=== PATIENT | male | born 1975 | race Caucasian/White ===

== ENCOUNTER 2017-09-08 09:23 | Emergency (ER) | payer MEDICAID, SELFPAY ==
[2017-09-08 09:25] VITALS: BMI 28.3
--- NOTE | 2017-09-08 10:31 | ED PDOC ---
HPI: Abdomen Time Seen by Provider: 09/08/17 10:05 Chief Complaint (Nursing): Back Pain Chief Complaint (Provider): Abdominal Pain History Per: Patient, Game Designer/Creative Director History/Exam Limitations: no limitations Current Symptoms Are (Timing): Better Severity: Mild Location Of Pain/Discomfort: Diffuse, LUQ Quality Of Discomfort: Unable To Describe Associated Symptoms: Nausea, Vomiting Past Medical History Vital Signs: Last Vital Signs Temp 97.6 F 09/08/17 09:27 Pulse 85 09/08/17 09:27 Resp 20 09/08/17 09:27 BP 134/86 09/08/17 09:27 Pulse Ox 98 09/08/17 17:04 - Surgical History Surgical History: Appendectomy - Family History Family History: States: No Known Family Hx - Allergies Allergies/Adverse Reactions: Allergies Allergy/AdvReac Type Severity Reaction Status Date / Time Unobtainable Allergy Verified 09/08/17 10:37 Review of Systems Constitutional: Positive for: Fever Gastrointestinal: Positive for: Nausea, Vomiting Musculoskeletal: Positive for: Back Pain Physical Exam - Reviewed Nursing Documentation Reviewed: Yes Vital Signs Reviewed: Yes - Physical Exam Appears: Positive for: Well, Non-toxic, No Acute Distress Head Exam: Positive for: ATRAUMATIC, NORMOCEPHALIC Skin: Positive for: Normal Color Neck: Positive for: Normal, Painless ROM, Supple Cardiovascular/Chest: Positive for: Regular Rate, Rhythm, Chest Non Tender. Negative for: Edema, Gallop, Murmur Respiratory: Positive for: Normal Breath Sounds. Negative for: Accessory Muscle Use, Crackles, Rales, Rhonchi, Stridor, Wheezing, Respiratory Distress Gastrointestinal/Abdominal: Positive for: Bowel Sounds (normal), Soft. Negative for: Tenderness - Laboratory Results Result Diagrams: 09/08/17 11:30 09/08/17 11:30 - ECG O2 Sat by Pulse Oximetry: 98 Medical Decision Making Medical Decision Making: R/O Hepatitis over Fatty Liver CT: PROCEDURE: CT Abdomen and Pelvis with contrast HISTORY: hx hepatome COMPARISON: None. TECHNIQUE: Contrast dose: Omnipaque 300, 95 cc Radiation dose: Total exam DLP = mGy-cm. This CT exam was performed using one or more of the following dose reduction techniques: Automated exposure control, adjustment of the mA and/or kV according to patient size, and/or use of iterative reconstruction technique. FINDINGS: LOWER THORAX: Unremarkable. LIVER: There is prominent diffuse diminished density seen throughout the liver compatible hepatic steatosis. No intrahepatic biliary dilatation or definitive mass appreciable. Fluid does not appear significantly enlarged. GALLBLADDER AND BILE DUCTS: Unremarkable. PANCREAS: Unremarkable. No gross lesion or ductal dilatation. SPLEEN: Unremarkable. ADRENALS: Unremarkable. No mass. KIDNEYS AND URETERS: Unremarkable. No hydronephrosis. No solid mass. VASCULATURE: Unremarkable. No aortic aneurysm. BOWEL: Unremarkable. No obstruction. No gross mural thickening. APPENDIX: The appendix not identified. No CT evidence of appendicitis at this time. PERITONEUM: Unremarkable. No free fluid. No free air. LYMPH NODES: Mildly enlarged bilaterally well of lymph nodes identified measuring 2.6 x 1.0 cm maximum at the left and 2.9 x 1.0 cm at the right. BLADDER: Unremarkable. REPRODUCTIVE: Unremarkable. BONES: No acute fracture. OTHER FINDINGS: None. IMPRESSION: Prominent hepatic steatosis is seen diffusely without focal mass or enlarged liver appreciated. No intrahepatic biliary dilatation. If they hepatic mass is clinically suspected then follow-up triple phase CT the abdomen is advised or MRI with and without contrast. Mild bilateral inguinal lymphadenopathy. Consistent findings wiht acute hepatitis pt will phone in following morning for results of Acute Hep Panel Rest Fluids No etoh no tylenol Disposition - Clinical Impression Clinical Impression: Fatty liver disease, nonalcoholic - Patient ED Disposition Is Patient to be Admitted: No Doctor Will See Patient In The: Office Counseled Patient/Family Regarding: Studies Performed, Diagnosis, Need For Followup - Disposition Disposition: Routine/Home Disposition Time: 17:13 Condition: STABLE Additional Instructions: pt will phone in the am for lab results pt will follow up with his PMD at the [facility] Instructions: Nonalcoholic Fatty Liver Disease (DC), Hepatitis A Forms: [employer] (Swedish)
[2017-09-08] MEDS ORDERED: Sodium Chloride 0.9% 1,000 ML IV SCH (10:45)
[2017-09-08 12:03] LABS: BASO # 0.1 K/uL (0.0-0.2); BASO % 0.7 % (0.0-2.0); EOS # 0.1 K/uL (0.0-0.7); EOS % 1.5 % (0.0-4.0); HEMOGLOBIN 15.5 g/dL (12.0-18.0); LYMPH # 2.2 K/uL (1.0-4.3); LYMPH % 30.2 % (20.0-40.0); MEAN CELL VOLUME 87.4 fl (80.0-94.0); MEAN CORPUSCULAR HEMOGLOBIN 29.9 pg (27.0-31.0); MEAN CORPUSCULAR HGB CONC 34.2 g/dL (33.0-37.0); MEAN PLATELET VOLUME 9.2 fl (7.2-11.7); MONO % 13.3 % (0.0-10.0); NEUT # 3.9 K/uL (1.8-7.0); NEUT % 54.3 % (50.0-75.0); NRBC % 0.1 % (0.0-0.0); RBC 5.17 Mil/uL (4.40-5.90); RED CELL DISTRIBUTION WIDTH 13.4 % (11.5-14.5); WHITE BLOOD COUNT 7.2 K/uL (4.8-10.8)
[2017-09-08 12:09] LABS: SQUAMOUS EPITHIAL 1 /hpf (0-5); URINE BACTERIA RARE (<OCC); URINE BILIRUBIN NEGATIVE (NEGATIVE); URINE BLOOD MODERATE (NEGATIVE); URINE CLARITY SLIGHTY-CLOUDY (Clear); URINE COLOR AMBER (YELLOW); URINE GLUCOSE (UA) NEG (Normal); URINE HYALINE CAST 0-2 /hpf (0-2); URINE LEUKOCYTE ESTERASE NEG Leu/uL (Negative); URINE PROTEIN 30 mg/dL (NEGATIVE)
[2017-09-08 12:20] LABS: ALB/GLOB RATIO 1.2 (1.0-2.1); ALT/SGPT 153 U/L (21-72); AST/SGOT 48 U/L (17-59); BLOOD UREA NITROGEN 17 mg/dl (9-20); CALCIUM 8.9 mg/dL (8.4-10.2); GFR AFRICAN-AMERICAN > 60; GFR NON-AFRICAN AMERICAN > 60; LIPASE 145 U/L (23-300)
[2017-09-08] MEDS ORDERED: Iohexol 300 100 ML IJ ONE (15:28)
[2017-09-08] MEDS ORDERED: Sodium Chloride 0.9% 100 ML ONE (15:29)
[2017-09-08 15:58] LABS: HEPATITIS B SURFACE AG Negative (NEGATIVE)
[2017-09-08 16:04] LABS: HEPATITIS A IGM NEGATIVE (NEGATIVE); HEPATITIS B CORE AB NEGATIVE (NEGATIVE)
[2017-09-08 16:15] LABS: HEPATITIS C ANTIBODY NEGATIVE (NEGATIVE)
--- NOTE | 2017-09-08 16:53 | CT ---
PROCEDURE: CT Abdomen and Pelvis with contrast HISTORY: hx hepatome COMPARISON: None. TECHNIQUE: Contrast dose: Omnipaque 300, 95 cc Radiation dose: Total exam DLP = mGy-cm. This CT exam was performed using one or more of the following dose reduction techniques: Automated exposure control, adjustment of the mA and/or kV according to patient size, and/or use of iterative reconstruction technique. FINDINGS: LOWER THORAX: Unremarkable. LIVER: There is prominent diffuse diminished density seen throughout the liver compatible hepatic steatosis. No intrahepatic biliary dilatation or definitive mass appreciable. Fluid does not appear significantly enlarged. GALLBLADDER AND BILE DUCTS: Unremarkable. PANCREAS: Unremarkable. No gross lesion or ductal dilatation. SPLEEN: Unremarkable. ADRENALS: Unremarkable. No mass. KIDNEYS AND URETERS: Unremarkable. No hydronephrosis. No solid mass. VASCULATURE: Unremarkable. No aortic aneurysm. BOWEL: Unremarkable. No obstruction. No gross mural thickening. APPENDIX: The appendix not identified. No CT evidence of appendicitis at this time. PERITONEUM: Unremarkable. No free fluid. No free air. LYMPH NODES: Mildly enlarged bilaterally well of lymph nodes identified measuring 2.6 x 1.0 cm maximum at the left and 2.9 x 1.0 cm at the right. BLADDER: Unremarkable. REPRODUCTIVE: Unremarkable. BONES: No acute fracture. OTHER FINDINGS: None. IMPRESSION: Prominent hepatic steatosis is seen diffusely without focal mass or enlarged liver appreciated. No intrahepatic biliary dilatation. If they hepatic mass is clinically suspected then follow-up triple phase CT the abdomen is advised or MRI with and without contrast. Mild bilateral inguinal lymphadenopathy.
[2017-09-08 17:24] VITALS: BP 126/79; PULSE 75; RESP 14; TEMP 97.9; O2SAT 99
== END 2017-09-08 17:24 | disposition home or self-care (01) ==
LOC: H.ER 09:23
DX: B17.9 Acute viral hepatitis, unspecified (principal); K76.0 Fatty (change of) liver, not elsewhere classified
CPT/HCPCS: 74177; 80053; 80074; 81003; 83690; 85025; 87804; 99284; J7040; Q9967